=== PATIENT | female | born 1935 | race Caucasian/White ===

== ENCOUNTER 2019-03-13 11:42 | Day surgery (SDC) | payer MEDICARE ==
[~2019-03-13] VITALS: Ht 162.6 cm; Wt 229.4 kg
[~2019-03-13 11:42] MED LIST: LATA.005SO
== END 2019-03-13 12:50 | disposition home or self-care (01) ==
LOC: ORSCSDS 11:42
PROVIDERS: Anesthesiology
PROC: 3E0R33Z Introduction of Anti-inflammatory into Spinal Canal, Percutaneous Approach (ICD-10-PCS; principal; 2019-03-13 12:45)
DX: M96.1 Postlaminectomy syndrome, not elsewhere classified (principal); M54.16 Radiculopathy, lumbar region; E78.00 Pure hypercholesterolemia, unspecified; E66.9 Obesity, unspecified; Z68.39 Body mass index [BMI] 39.0-39.9, adult; Z79.01 Long term (current) use of anticoagulants; Z79.82 Long term (current) use of aspirin; Z79.899 Other long term (current) drug therapy
CPT/HCPCS: J1040